=== PATIENT | female | born 1950 | race Caucasian/White ===

== ENCOUNTER 2019-04-25 07:36 | Outpatient (CLI) | payer MEDICARE, OTHER ==
[2019-04-25 10:52] LABS: HGB - HEMOGLOBIN 12.6 g/dL (12.0-16.0); MEAN CORPUSCULAR HEMOGLOBIN 30.1 pg (27.0-31.0); MEAN CORPUSCULAR HGB CONC 32.9 g/dL (32.0-36.0); MEAN CORPUSCULAR VOLUME 91.6 fL (81.0-99.0); MEAN PLATELET VOLUME 10.3 fL (7.9-10.8); RED BLOOD COUNT 4.18 10^6/uL (4.20-5.40); RED CELL DISTRIBUTION WIDTH 12.6 % (12.0-15.0); WHITE BLOOD COUNT 5.1 x10^3/uL (4.8-10.8)
[2019-04-25 11:14] LABS: ALBUMIN 4.3 g/dL (3.2-5.5); ALBUMIN/GLOBULIN RATIO 1.4 (1.0-2.2); ALKALINE PHOSPHATASE 80 IU/L (42-121); ALT ALANINE AMINOTRANSFERASE 19 IU/L (10-60); AST ASPARTATE AMINOTRANSFERASE 18 IU/L (10-42); BILIRUBIN,TOTAL 0.7 mg/dL (0.2-1.0); BUN - BLOOD UREA NITROGEN 13 mg/dL (6-20); CALCIUM 8.8 mg/dL (8.5-10.3); CARBON DIOXIDE - CO2 28 mmol/L (21-32); CHLORIDE 104 mmol/L (101-111); CHOL/HDL RATIO 6.2 (<4.4); CHOLESTEROL 291 mg/dL; CREATININE 0.5 mg/dL (0.4-1.0); GFR - MDRD 123 (>89); GLUCOSE 98 mg/dL (70-100); HDL CHOLESTEROL 47 mg/dL; LDL CHOLESTEROL,CALCULATED 225 mg/dL; LDL/HDL RATIO 4.8 (<4.4); SODIUM 139 mmol/L (135-145); TOTAL PROTEIN 7.3 g/dL (6.7-8.2); VLDL CHOLESTEROL 19 mg/dL
== END 2019-04-25 07:37 | disposition home or self-care (01) ==
LOC: LAB.S 07:36
PROVIDERS: ATTEND Nurse Practitioner Adult Health
DX: Z00.00 Encounter for general adult medical examination without abnormal findings (principal); E03.8 Other specified hypothyroidism; Z86.73 Personal history of transient ischemic attack (TIA), and cerebral infarction without residual deficits
CPT/HCPCS: 36415; 80053; 80061; 83036; 83721; 84443; 85027

== ENCOUNTER 2020-04-16 07:08 | Outpatient (CLI) | payer MEDICARE, OTHER ==
[2020-04-16 15:24] LABS: HGB - HEMOGLOBIN 12.4 g/dL (12.0-16.0); MEAN CORPUSCULAR HEMOGLOBIN 30.8 pg (27.0-31.0); MEAN CORPUSCULAR VOLUME 93.5 fL (81.0-99.0); RED BLOOD COUNT 4.02 10^6/uL (4.20-5.40); RED CELL DISTRIBUTION WIDTH 12.9 % (12.0-15.0); WHITE BLOOD COUNT 5.7 x10^3/uL (4.8-10.8)
[2020-04-16 15:53] LABS: ALBUMIN 4.2 g/dL (3.2-5.5); ALBUMIN/GLOBULIN RATIO 1.5 (1.0-2.2); ALKALINE PHOSPHATASE 98 IU/L (42-121); ALT ALANINE AMINOTRANSFERASE 21 IU/L (10-60); AST ASPARTATE AMINOTRANSFERASE 21 IU/L (10-42); BILIRUBIN,TOTAL 0.6 mg/dL (0.2-1.0); BUN - BLOOD UREA NITROGEN 9 mg/dL (6-20); CARBON DIOXIDE - CO2 27 mmol/L (21-32); CHLORIDE 101 mmol/L (101-111); CHOL/HDL RATIO 4.8 (<4.4); CHOLESTEROL 258 mg/dL; CREATININE 0.5 mg/dL (0.4-1.0); GLUCOSE 90 mg/dL (70-100); HDL CHOLESTEROL 54 mg/dL; LDL CHOLESTEROL,CALCULATED 172 mg/dL; LDL/HDL RATIO 3.2 (<4.4); SODIUM 137 mmol/L (135-145); VLDL CHOLESTEROL 32 mg/dL
[2020-04-16 20:19] LABS: HEMOGLOBIN A1c% 5.5 % (4.27-6.07)
== END 2020-04-16 07:09 | disposition home or self-care (01) ==
LOC: LAB.S 07:08
PROVIDERS: ATTEND Nurse Practitioner Adult Health
DX: Z00.00 Encounter for general adult medical examination without abnormal findings (principal); Z86.39 Personal history of other endocrine, nutritional and metabolic disease; E55.9 Vitamin D deficiency, unspecified
CPT/HCPCS: 36415; 80053; 80061; 82306; 83036; 83721; 84443; 85027

== ENCOUNTER 2021-10-04 07:19 | Outpatient (CLI) | payer MEDICARE ==
[2021-10-04 14:47] LABS: HCT - HEMATOCRIT 37.6 % (37.0-47.0); HGB - HEMOGLOBIN 12.6 g/dL (12.0-16.0); MEAN CORPUSCULAR HEMOGLOBIN 29.7 pg (27.0-31.0); MEAN CORPUSCULAR HGB CONC 33.5 g/dL (32.0-36.0); MEAN CORPUSCULAR VOLUME 88.7 fL (81.0-99.0); MEAN PLATELET VOLUME 10.9 fL (7.9-10.8); RED BLOOD COUNT 4.24 10^6/uL (4.20-5.40); RED CELL DISTRIBUTION WIDTH 12.9 % (12.0-15.0); WHITE BLOOD COUNT 4.9 x10^3/uL (4.8-10.8)
[2021-10-04 15:09] LABS: THYROID STIMULATING HORMONE 0.91 uIU/mL (0.34-5.60)
[2021-10-04 15:12] LABS: ALBUMIN 4.1 g/dL (3.2-5.5); ALBUMIN/GLOBULIN RATIO 1.6 (1.0-2.2); ALKALINE PHOSPHATASE 89 IU/L (42-121); ALT ALANINE AMINOTRANSFERASE 21 IU/L (10-60); AST ASPARTATE AMINOTRANSFERASE 22 IU/L (10-42); BILIRUBIN,TOTAL 0.6 mg/dL (0.2-1.0); BUN - BLOOD UREA NITROGEN 9 mg/dL (6-20); CARBON DIOXIDE - CO2 26 mmol/L (21-32); CHLORIDE 103 mmol/L (101-111); CHOL/HDL RATIO 6.4 (<4.4); CHOLESTEROL 300 mg/dL; CREATININE 0.5 mg/dL (0.4-1.0); GFR - MDRD 122 (>89); GLUCOSE 96 mg/dL (70-100); HDL CHOLESTEROL 47 mg/dL; LDL CHOLESTEROL,CALCULATED 226 mg/dL; LDL/HDL RATIO 4.8 (<4.4); POTASSIUM 4.1 mmol/L (3.5-5.0); SODIUM 139 mmol/L (135-145); TOTAL PROTEIN 6.7 g/dL (6.7-8.2); TRIGLYCERIDES 134 mg/dL; VLDL CHOLESTEROL 27 mg/dL
[2021-10-04 19:14] LABS: ESTIMATED AVERAGE GLUCOSE 123 mg/dL (70-100); HEMOGLOBIN A1c% 5.9 % (4.27-6.07)
== END 2021-10-04 07:20 | disposition home or self-care (01) ==
LOC: LAB.S 07:19
PROVIDERS: ATTEND Nurse Practitioner Adult Health
DX: Z00.00 Encounter for general adult medical examination without abnormal findings (principal); Z79.1 Long term (current) use of non-steroidal anti-inflammatories (NSAID); M54.6 Pain in thoracic spine; G89.29 Other chronic pain
CPT/HCPCS: 36415; 80053; 80061; 83036; 83721; 84443; 85027

== ENCOUNTER 2022-05-12 07:05 | Outpatient (CLI) | payer MEDICARE ==
[2022-05-12 14:30] LABS: HCT - HEMATOCRIT 38.9 % (37.0-47.0); HGB - HEMOGLOBIN 12.8 g/dL (12.0-16.0); MEAN CORPUSCULAR HEMOGLOBIN 29.8 pg (27.0-31.0); MEAN CORPUSCULAR HGB CONC 32.9 g/dL (32.0-36.0); MEAN CORPUSCULAR VOLUME 90.7 fL (81.0-99.0); MEAN PLATELET VOLUME 11.1 fL (7.9-10.8); RED BLOOD COUNT 4.29 10^6/uL (4.20-5.40); RED CELL DISTRIBUTION WIDTH 12.8 % (12.0-15.0); WHITE BLOOD COUNT 5.1 x10^3/uL (4.8-10.8)
[2022-05-12 15:13] LABS: ALBUMIN 4.1 g/dL (3.2-5.5); ALBUMIN/GLOBULIN RATIO 1.5 (1.0-2.2); ALKALINE PHOSPHATASE 81 IU/L (42-121); ALT ALANINE AMINOTRANSFERASE 20 IU/L (10-60); AST ASPARTATE AMINOTRANSFERASE 22 IU/L (10-42); BILIRUBIN,TOTAL 0.5 mg/dL (0.2-1.0); BUN - BLOOD UREA NITROGEN 14 mg/dL (6-20); CARBON DIOXIDE - CO2 29 mmol/L (21-32); CHLORIDE 99 mmol/L (101-111); CHOL/HDL RATIO 3.6 (<4.4); CHOLESTEROL 175 mg/dL; CREATININE 0.5 mg/dL (0.4-1.0); GFR - MDRD 122 (>89); GLUCOSE 89 mg/dL (70-100); HDL CHOLESTEROL 48 mg/dL; LDL CHOLESTEROL,CALCULATED 112 mg/dL; LDL/HDL RATIO 2.3 (<4.4); SODIUM 135 mmol/L (135-145); TOTAL PROTEIN 6.8 g/dL (6.7-8.2); TRIGLYCERIDES 73 mg/dL; VLDL CHOLESTEROL 15 mg/dL
[2022-05-12 15:27] LABS: THYROID STIMULATING HORMONE 0.11 uIU/mL (0.34-5.60)
[2022-05-12 15:48] LABS: ESTIMATED AVERAGE GLUCOSE 114 mg/dL (70-100); HEMOGLOBIN A1c% 5.6 % (4.27-6.07)
[2022-05-12 17:44] LABS: FREE T4 (FREE THYROXINE) 0.78 ng/dL (0.58-1.64)
== END 2022-05-12 07:06 | disposition home or self-care (01) ==
LOC: LAB.S 07:05
PROVIDERS: ATTEND Nurse Practitioner Adult Health
DX: Z00.00 Encounter for general adult medical examination without abnormal findings (principal)
CPT/HCPCS: 36415; 80053; 80061; 83036; 83721; 84439; 84443; 85027

== ENCOUNTER 2022-12-09 13:12 | Outpatient (CLI) | payer MEDICARE ==
--- NOTE | 2022-12-09 15:21 | CT Report ---
PROCEDURE: Low Dose Lung Cancer Screen INDICATIONS: SCREENING FOR LUNG CA TECHNIQUE: A CT scan of the chest was performed. Intravenous contrast media was not administered. Images were re corded and evaluated at appropriate window settings. Reformats: axial MIP of the chest, coronal and s agittal. For radiation dose reduction, the following was used: automated exposure control, adjustment of mA and/or kV according to patient size. COMPARISON: None. FINDINGS: Image quality: Excellent. Prior cancer history: Unsure. Lungs and pleura: No pleural effusions. No pneumothorax. Biapical scarring. 9 x 5 mm solid nodule in the lateral right upper lobe (series 4, image 203). Additional scattered sub-6 mm solid pulmonary nodules. Examples include: -5 x 6 mm juxtapleural nodule, right middle lobe (series 4, image 204). -6 x 4 mm solid nodule, left lung apex (series 4, image 34). -4 mm solid nodule, right upper lobe (series 4, image 46). Mediastinum: Heart size is normal. No pericardial effusion. No large vessel abnormality. No mediastin al adenopathy by size criteria. One vessel coronary artery calcifications. Chest wall and lower neck: Thyroid is hypoattenuating versus absent. No axillary or supraclavicular a denopathy by size. Bones: No aggressive osseous abnormality. Upper Abdomen: Unremarkable. IMPRESSION: Lung RAD: 3 - Probably Benign. Recommendation: Continue screening in 6 Months with LDCT Non-Lung Significant Findings: None. Reviewed by: Rolando Thurston on 12/09/2022 3:20 PM PDT Approved by: Rolando Thurston on 12/09/2022 3:20 PM PDT Station ID: [id number]
== END 2022-12-09 13:13 | disposition home or self-care (01) ==
LOC: DI 13:12
PROVIDERS: ATTEND Nurse Practitioner Acute Care
DX: Z12.2 Encounter for screening for malignant neoplasm of respiratory organs (principal); R91.8 Other nonspecific abnormal finding of lung field

== ENCOUNTER 2022-12-09 13:13 | Outpatient (CLI) | payer MEDICARE ==
--- NOTE | 2022-12-12 09:33 | Mammography Report ---
BILATERAL DIGITAL SCREENING MAMMOGRAM 3D/2D: 12/09/2022 CLINICAL: Routine screening. Comparison is made to exam dated: 08/26/2020 mammogram - [facility]. Both breasts are almost entirely fatty (category a/<25% glandular tissue). There are benign vascular calcifications in both breasts. No significant masses, calcifications, or other findings are seen in either breast. There has been no significant interval change. IMPRESSION: BENIGN There is no mammographic evidence of malignancy. A 1 year screening mammogram is recommended. Based on the Tyrer Cuzick model (a risk assessment model) the patients lifetime risk is 2.4% and her 10 year risk is 1.8%. According to the ACR, ACS, and NCCN guidelines, an annual breast MRI exam seng g with mammogram is recommended if the patients lifetime risk is 20% or greater. This exam was interpreted at Station ID: [id number]. NOTE: For mammograms, a report in lay terms will be sent to the patient. Approximately 15% of breast malignancies will not be visualized mammographically. In the management of a palpable breast mass, a negative mammogram must not discourage biopsy of a clinically suspicious lesion. Electronically Signed By: Rodrigo Donohue M.D. acr/penrad:12/09/2022 15:28:09 letter sent: No_Letter ACR BI-RADS Category 2: Benign Finding(s) 3342F PARENCHYMAL PATTERN: (F) - The breast(s) demonstrate(s) diffuse fatty replacement. BI-RADS CATEGORY: (2) - 2 Mammogram [id number] 1 year screening LATERALITY: (B)
== END 2022-12-09 13:14 | disposition home or self-care (01) ==
LOC: DI 13:13
PROVIDERS: ATTEND Nurse Practitioner Acute Care
DX: Z12.31 Encounter for screening mammogram for malignant neoplasm of breast (principal)

== ENCOUNTER 2023-02-14 08:00 | Outpatient (CLI) | payer MEDICARE ==
[2023-02-14 17:59] LABS: BILIRUBIN,URINE NEGATIVE (NEGATIVE); GLUCOSE, URINE (UA) NEGATIVE (NEGATIVE); KETONES,URINE (UA) NEGATIVE (NEGATIVE); LEUKOCYTE ESTERASE, URINE SMALL (NEGATIVE); NITRITE,URINE NEGATIVE (NEGATIVE); OCCULT BLOOD,URINE NEGATIVE (NEGATIVE); PH,URINE 7.5 PH (5.0-7.5); PROTEIN,URINE NEGATIVE (NEGATIVE); UROBILINOGEN,URINE 0.2 (NORMAL) E.U./dL (NORMAL)
[2023-02-14 18:11] LABS: BACTERIA,URINE Few /HPF (None Seen); CLARITY,URINE HAZY (CLEAR); RBC,URINE 0-5 /HPF (0-5); SQUAMOUS EPITHELIAL CELL,UR FEW Squamous (<= Few)
== END 2023-02-14 23:59 | disposition home or self-care (01) ==
LOC: LAB.WC 08:00
PROVIDERS: ATTEND Obstetrics & Gynecology
DX: R39.15 Urgency of urination (principal)
CPT/HCPCS: 81001; 87086; 87181

== ENCOUNTER 2023-02-23 07:20 | Day surgery (SDC) | payer MEDICARE ==
[2023-02-23] MEDS ORDERED: LACTATED RINGERS 1,000 ML IV ONE (07:30)
--- NOTE | 2023-02-23 09:11 | HISTORY & PHYSICAL EXAMINATION ---
Chief Complaint - Chief Complaint Chief Complaint: change in bowel habits History of Present Illness - History Obtained From Records Reviewed: yes History obtained from: pt Exam Limitations: none - History of Present Illness HPI Comment/Other: change in bowel habits with more frequent, looser stool. negative cultures. negative cologuard earlier this year. son recently diagnosed ulcerative colitis. 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 Meds/Allgy - Home Medications Home Medications: Ambulatory Orders Medication Instructions Recorded Confirmed Acetaminophen [Tylenol] 650 mg PO Q6H PRN 02/22/23 02/23/23 Cholecalciferol (Vitamin D3) 1,250 mcg PO DAILY 02/22/23 02/23/23 [Vitamin D3] Cranberry/Vitamin C/D-Mannose 1 tab ORAL DAILY 02/22/23 02/23/23 [Cranrx Vit C-Mannose Gummy] Magnesium 250 mg PO DAILY 02/22/23 02/23/23 Potassium Citrate [Potassium] 99 mg PO DAILY 02/22/23 02/23/23 Thyroid,Pork [Thyroid] 1 tab ORAL DAILY 02/22/23 02/23/23 - Allergies Allergies/Adverse Reactions: Allergies Allergy/AdvReac Type Severity Reaction Status Date / Time moxifloxacin [From Avelox] Allergy Hives Verified 02/22/23 13:33 Penicillins Allergy Hives Verified 02/22/23 13:33 Sulfa (Sulfonamide Allergy Hives Verified 02/22/23 13:33 Antibiotics) Review of Systems - Other Findings Other Findings: 10 pt ros as above otherwise unremarkable Exam - Physical Exam General Appearance: positive: No acute distress, Alert Eyes Bilateral: positive: PERRL, EOMI ENT: positive: No signs of dehydration Neck: positive: No JVD, Trachea midline Respiratory: positive: No respiratory distress Cardiovascular: positive: Regular rate & rhythm Abdomen: positive: Non-tender, No distention Conclusion/Plan - Problem List (1) Change in bowel habits Conclusion/Plan: plan colonoscopy with biopsies. parq held and consent obtained
[2023-02-23] MEDS ORDERED: PROPOFOL 500 MG/50 ML 500 MG/50 ML VIAL ONE (09:12)
--- NOTE | 2023-02-23 09:12 | ANESTHESIA ---
Pre-Anesthesia VS, & Labs - Diagnosis screening, change in bowel - Procedure colonoscopy Height: 5 ft 5 in Weight (kg): 59.7 kg Body Mass Index: 21.9 BMI Classification: Normal - NPO >8 hours - Is Patient ?: No - Lab Results Lab results reviewed: Yes Home Medications and Allergies Home Medications: Ambulatory Orders Acetaminophen [Tylenol] 650 mg PO Q6H PRN 02/22/23 Cholecalciferol (Vitamin D3) [Vitamin D3] 1,250 mcg PO DAILY 02/22/23 Cranberry/Vitamin C/D-Mannose [Cranrx Vit C-Mannose Gummy] 1 tab ORAL DAILY 02/22/23 Magnesium 250 mg PO DAILY 02/22/23 Potassium Citrate [Potassium] 99 mg PO DAILY 02/22/23 Thyroid,Pork [Thyroid] 1 tab ORAL DAILY 02/22/23 Acetaminophen [Tylenol] 650 mg PO Q6H PRN 02/22/23 Cholecalciferol (Vitamin D3) [Vitamin D3] 1,250 mcg PO DAILY 02/22/23 Cranberry/Vitamin C/D-Mannose [Cranrx Vit C-Mannose Gummy] 1 tab ORAL DAILY 02/22/23 Magnesium 250 mg PO DAILY 02/22/23 Potassium Citrate [Potassium] 99 mg PO DAILY 02/22/23 Thyroid,Pork [Thyroid] 1 tab ORAL DAILY 02/22/23 Allergies/Adverse Reactions: Allergies Allergy/AdvReac Type Severity Reaction Status Date / Time moxifloxacin [From Avelox] Allergy Hives Verified 02/22/23 13:33 Penicillins Allergy Hives Verified 02/22/23 13:33 Sulfa (Sulfonamide Allergy Hives Verified 02/22/23 13:33 Antibiotics) Anes History & Medical History - Anesthetic History Anesthesia Complications: reports: No previous complications Family history of Anesthesia Complications: Denies Family history of Malignant Hyperthermia: Denies - Medical History Cardiovascular: reports: High cholesterol Pulmonary: reports: Asthma Gastrointestinal: reports: GERD (rare) Urinary: reports: Chronic bladder infection Neuro: reports: TIA (x2) Musculoskeletal: reports: Chronic back pain Endocrine/Autoimmune: reports: HyPOthyroidism Blood Disorders: reports: None Smoking Status: Never smoker Psychosocial: reports: No issues indicated - Surgical History Gynecologic: reports: Hysterectomy Exam General: Alert, Oriented x3, Cooperative Dental: WNL Mouth Openin Fingerbreadth Neck Mobility: Normal Mallampati classification: I Thyromental Distance: 4-6 cm Respiratory: Lungs clear Cardiovascular: Regular rate Plan Anesthesia Type: General, MAC Consent for Procedure(s) Verified and Reviewed: Yes Code Status: Attempt Resuscitation ASA classification: 2-Mild systemic disease Is this case an emergency?: No
[2023-02-23] MEDS ORDERED: LACTATED RINGERS 250 ML IV ONE (10:05)
[2023-02-23 11:06] VITALS: BP 126/71; O2SAT 99
--- NOTE | 2023-02-23 12:00 | ANESTHESIA POST OP EVALUATION ---
Anesthesia Post Eval - Post Anesthesia Eval Vitals: Last Vital Signs Temp 36.0 C L 02/23/23 10:31 Pulse 63 02/23/23 10:31 Resp 14 02/23/23 10:31 BP 126/71 02/23/23 10:31 Pulse Ox 99 02/23/23 10:31 O2 Flow Rate CV Function Including HR & BP: Stable Pain Control: Satisfactory Nausea & Vomiting: Negative Mental Status: Baseline Respiratory Status: Airway Patent Hydration Status: Satisfactory Anesthesia Complications: None
== END 2023-02-23 07:21 | disposition home or self-care (01) ==
LOC: SDS 07:20
PROVIDERS: ATTEND Surgery
PROC: 0DBP8ZX Excision of Rectum, Via Natural or Artificial Opening Endoscopic, Diagnostic (ICD-10-PCS; 2023-02-23)
PROC: 0DBF8ZX Excision of Right Large Intestine, Via Natural or Artificial Opening Endoscopic, Diagnostic (ICD-10-PCS; 2023-02-23)
PROC: 0DBG8ZX Excision of Left Large Intestine, Via Natural or Artificial Opening Endoscopic, Diagnostic (ICD-10-PCS; principal; 2023-02-23 08:30)
DX: R19.5 Other fecal abnormalities (principal); R19.4 Change in bowel habit; R19.7 Diarrhea, unspecified; K57.30 Diverticulosis of large intestine without perforation or abscess without bleeding; J45.909 Unspecified asthma, uncomplicated; Z87.891 Personal history of nicotine dependence
CPT/HCPCS: 45380; J7120

== ENCOUNTER 2023-04-21 07:55 | Outpatient (CLI) | payer MEDICARE ==
[2023-04-21 16:08] LABS: THYROID STIMULATING HORMONE 1.88 uIU/mL (0.34-5.60)
== END 2023-04-21 07:56 | disposition home or self-care (01) ==
LOC: LAB.S 07:55
PROVIDERS: ATTEND Internal Medicine
DX: E03.9 Hypothyroidism, unspecified (principal)
CPT/HCPCS: 36415; 84439; 84443; 84481

== ENCOUNTER 2023-11-14 10:16 | Outpatient (CLI) | payer MEDICARE ==
--- NOTE | 2023-11-14 16:55 | CT Report ---
PROCEDURE: Chest WO INDICATIONS: LUNG NODULE TECHNIQUE: A CT scan of the chest was performed. Intravenous contrast media was not administered. Images were re corded and evaluated at appropriate window settings. Reformats: axial MIP of the chest, coronal and s agittal. For radiation dose reduction, the following was used: automated exposure control, adjustment of mA and/or kV according to patient size. COMPARISON: CT 12/09/2022. FINDINGS: Image quality: Diagnostic. Chest wall and lower neck: Thyroid is diminutive versus absent. No axillary or supraclavicular adenop athy by size. Lungs and pleura: No consolidation. No pleural effusions. No pneumothorax. Biapical scarring. Stable solid pulmonary nodules. Examples include: - Stable 6 x 3 mm solid nodule, right lower lobe (series 4, image 77). -Stable 3 x 4 mm solid nodule, right upper lobe (series 4, image 21). Mediastinum: Heart size is normal. No pericardial effusion. No large vessel abnormality. No mediastin al adenopathy by size criteria. Bones: No aggressive osseous abnormality. Upper Abdomen: Separately dictated. IMPRESSION: Stable solid pulmonary nodules. Lung-RAD 2. Continued annual screening is recommended, if eligible. Reviewed by: Rolando Thurston MD on 11/14/2023 4:53 PM PDT Approved by: Rolando Thurston MD on 11/14/2023 4:53 PM PDT Station ID: [id number]
== END 2023-11-14 10:17 | disposition home or self-care (01) ==
LOC: DI 10:16
PROVIDERS: ATTEND Nurse Practitioner Acute Care
DX: R91.8 Other nonspecific abnormal finding of lung field (principal)

== ENCOUNTER 2023-11-22 07:15 | Outpatient (CLI) | payer MEDICARE ==
--- NOTE | 2023-11-22 12:46 | XRAY Report ---
Finger(s) RT HISTORY: 73 years of age, PAIN IN R FINGER TECHNIQUE: Finger(s) RT COMPARISON: None. FINDINGS/IMPRESSION: No acute fracture or dislocation. No radiopaque foreign body about the third digit. Small ossificatio n dorsal to the third middle phalangeal base, representing prior injury. Joint spaces are grossly wel l maintained. Reviewed by: Izabela Gordon MD on 11/22/2023 12:45 PM PDT Approved by: Izabela Gordon MD on 11/22/2023 12:45 PM PDT Station ID: [id number]
[2023-11-22 15:19] LABS: BASOPHILS % (AUTO) 0.4 %; EOSINOPHILS # (AUTO) 0.1 10^3/uL (0.0-0.7); EOSINOPHILS % (AUTO) 2.7 %; HCT - HEMATOCRIT 40.8 % (37.0-47.0); HGB - HEMOGLOBIN 13.2 g/dL (12.0-16.0); LYMPHOCYTES # (AUTO) 2.1 10^3/uL (1.5-3.5); LYMPHOCYTES % (AUTO) 44.3 %; MEAN CORPUSCULAR HEMOGLOBIN 29.9 pg (27.0-31.0); MEAN CORPUSCULAR HGB CONC 32.4 g/dL (32.0-36.0); MEAN CORPUSCULAR VOLUME 92.3 fL (81.0-99.0); MEAN PLATELET VOLUME 9.8 fL (7.9-10.8); MONOCYTES # (AUTO) 0.5 10^3/uL (0.0-1.0); MONOCYTES % (AUTO) 10.4 %; PLT - PLATELET COUNT 246 10^3/uL (130-450); RED BLOOD COUNT 4.42 10^6/uL (4.20-5.40); RED CELL DISTRIBUTION WIDTH 12.7 % (12.0-15.0); WHITE BLOOD COUNT 4.8 x10^3/uL (4.8-10.8)
[2023-11-22 15:29] LABS: ALBUMIN 4.3 g/dL (3.2-5.5); ALBUMIN/GLOBULIN RATIO 1.7 (1.0-2.2); ALKALINE PHOSPHATASE 77 IU/L (42-121); ALT ALANINE AMINOTRANSFERASE 21 IU/L (10-60); AST ASPARTATE AMINOTRANSFERASE 20 IU/L (10-42); BILIRUBIN,TOTAL 0.5 mg/dL (0.2-1.0); BUN - BLOOD UREA NITROGEN 18 mg/dL (6-20); CALCIUM 9.5 mg/dL (8.5-10.3); CARBON DIOXIDE - CO2 28 mmol/L (21-32); CHLORIDE 98 mmol/L (101-111); CHOL/HDL RATIO 4.9 (<4.4); CHOLESTEROL 291 mg/dL; CREATININE 0.6 mg/dL (0.6-1.3); GFR - MDRD 98 (>89); GLUCOSE 85 mg/dL (74-104); HDL CHOLESTEROL 59 mg/dL; LDL CHOLESTEROL,CALCULATED 219 mg/dL; LDL/HDL RATIO 3.7 (<4.4); POTASSIUM 4.2 mmol/L (3.5-4.5); SODIUM 132 mmol/L (135-145); TOTAL PROTEIN 6.8 g/dL (6.4-8.9); TRIGLYCERIDES 63 mg/dL (48-352); VLDL CHOLESTEROL 13 mg/dL
[2023-11-22 15:38] LABS: THYROID STIMULATING HORMONE 1.38 uIU/mL (0.34-5.60)
[2023-11-24 16:09] LABS: HCV RNA QUANTITATION HCV Not Detected IU/mL (.)
== END 2023-11-22 07:16 | disposition home or self-care (01) ==
LOC: DI.S 07:15
PROVIDERS: ATTEND Internal Medicine
DX: M79.644 Pain in right finger(s) (principal); R03.0 Elevated blood-pressure reading, without diagnosis of hypertension; E78.5 Hyperlipidemia, unspecified; E03.9 Hypothyroidism, unspecified; J98.4 Other disorders of lung; Z86.16 Personal history of COVID-19; J18.9 Pneumonia, unspecified organism; J45.909 Unspecified asthma, uncomplicated; Z00.00 Encounter for general adult medical examination without abnormal findings; J30.2 Other seasonal allergic rhinitis; Z11.59 Encounter for screening for other viral diseases; G45.9 Transient cerebral ischemic attack, unspecified
CPT/HCPCS: 36415; 80053; 80061; 83721; 84443; 85025; 87522

== ENCOUNTER 2023-12-01 08:00 | Outpatient (CLI) | payer MEDICARE ==
[2023-12-01 18:25] LABS: BILIRUBIN,URINE NEGATIVE (NEGATIVE); GLUCOSE, URINE (UA) NEGATIVE (NEGATIVE); KETONES,URINE (UA) TRACE mg/dL (NEGATIVE); LEUKOCYTE ESTERASE, URINE MODERATE (NEGATIVE); NITRITE,URINE NEGATIVE (NEGATIVE); OCCULT BLOOD,URINE TRACE-INTA (NEGATIVE); PROTEIN,URINE NEGATIVE (NEGATIVE); UROBILINOGEN,URINE 0.2 (NORMAL) E.U./dL (NORMAL)
[2023-12-01 18:32] LABS: CLARITY,URINE CLEAR (CLEAR)
[2023-12-01 18:43] LABS: RBC,URINE 0-5 /HPF (0-5)
[2023-12-01 18:44] LABS: BACTERIA,URINE Rare /HPF (None Seen); SQUAMOUS EPITHELIAL CELL,UR FEW Squamous (<= Few)
== END 2023-12-01 23:59 | disposition home or self-care (01) ==
LOC: LAB.WC 08:00
PROVIDERS: ATTEND Nurse Practitioner
DX: N93.9 Abnormal uterine and vaginal bleeding, unspecified (principal)
CPT/HCPCS: 81001; 81003; 87086